=== PATIENT | male | born 1935 | race Caucasian/White ===

== ENCOUNTER → 2017-01-25 | Outpatient (CLI) | payer MEDICARE ==
[~2017-01-25] MED LIST: AMLODIPINE10 MG PO; ASPIRIN 81MG TA81 MG PO; BP MED; ISOSORBIDE DINI30 MG PO; LISINOPRIL HCTZ1 TAB PO; NIACIN250 M2 PO; VALSARTAN AND H1 TA1 PO
== END ==
LOC: LAB 17:44
DX: N39.0 Urinary tract infection, site not specified (principal)